=== PATIENT | female | born 1955 | race Hispanic/Latino ===

== ENCOUNTER → 2025-08-07 | Day surgery (SDC) | payer MEDICARE ==
[2025-08-03 09:38] LABS: BASOPHILS % 0.6 % (0.0-1.0); EOSINOPHILS % 3.7 % (0.0-6.0); LYMPHOCYTES % 24.9 % (18.0-39.1); MONOCYTES % 9.6 % (4.4-11.3); NEUTROPHILS % 60.9 % (38.7-80.0); RED CELL DISTRIBUTION WIDTH 12.9 % (11.7-14.4)
[2025-08-03 09:58] LABS: EST GLOMERULAR FILTRATION RATE 97.0 ML/MIN (>=60)
[~2025-08-07] MED LIST: CEFAZOLIN SODIUM 2 GM ONE; DEXAMETHASONE SOD PHOS INJ 4 MG/ML SDV ONE; EPHEDRINE SULFATE INJ 50 MG/ML VIAL ONE; FENTANYL CITRATE/PF 100MCG/2 ML INJ ONE; KETOROLAC TROMETHAMINE 30 MG/ML VIAL ONE; LACTATED RINGER'S 1,000 ML ONE; LIDOCAINE HCL 2% LOCAL INJ 5 ML SDV VIAL INJ ONE; LISINOPRIL-HCT1 EAC1 PO; MIDAZOLAM HCL 2 MG/2 ML VIAL ONE; ONDANSETRON HCL INJ 2MG/ML 2ML 2 MG/ML VIAL ONE; PROPOFOL IV EMULSION 50 ML IV ONE; SEVOFLURANE INHAL SOLN 250 ML PEN BTL ONE; VIT D3 PO
[2025-08-07 08:53] VITALS: TEMP 97.9
[2025-08-07 09:45] VITALS: BP 130/78; PULSE 76; RESP 16; O2SAT 98
== END | disposition home or self-care (01) ==
LOC: OR 05:58
PROVIDERS: ATTEND Podiatrist Foot & Ankle Surgery
DX: M20.12 Hallux valgus (acquired), left foot (principal); M20.42 Other hammer toe(s) (acquired), left foot; I10 Essential (primary) hypertension; K44.9 Diaphragmatic hernia without obstruction or gangrene; Z79.899 Other long term (current) drug therapy; Z01.810 Encounter for preprocedural cardiovascular examination; Z01.812 Encounter for preprocedural laboratory examination
CPT/HCPCS: 28285; 28292; 36415; 71046; 80048; 85025; 93005; J1100; J1885; J2003; J2250; J2405; J2704; J3010; J7121